=== PATIENT | male | born 1990 | race American Indian/Alaskan Native ===

== ENCOUNTER 2017-11-23 11:10 | Emergency (ER) | payer MEDICAID ==
[2017-11-23 11:37] VITALS: BP 114/76; PULSE 62; RESP 18; TEMP 98.5; O2SAT 95
[2017-11-23] MEDS ORDERED: cefTRIAXone (Rocephin) 250 mg Inj IM STA (11:43)
--- NOTE | 2017-11-23 11:46 | C.PDOC ---
History Of Present Illness 27 year old male presents to the emergency department with complaints of lower abdominal pain and dysuria. Patient reports that he believes to have contracted an STD following unprotected sex due to the fact that he contracted one last year. Patient denies any major medical problems and has a PMHx of asthma as a child. Patient denies fevers, chills, nausea and vomiting, pus, and bleeding. Time Seen by Provider: 11/23/17 11:39 Chief Complaint (Nursing): Male Genitourinary History Per: Patient Current Symptoms Are (Timing): Still Present Quality Of Discomfort: Cramping (in lower abdominal region.) Associated Symptoms: Urinary Symptoms (dysuria) Past Medical History Reviewed: Historical Data, Nursing Documentation, Vital Signs Vital Signs: Last Vital Signs Temp 98.5 F 11/23/17 11:15 Pulse 62 11/23/17 11:15 Resp 18 11/23/17 11:15 BP 114/76 11/23/17 11:15 Pulse Ox 95 11/23/17 13:19 - Medical History PMH: Asthma Surgical History: No Surg Hx - [facility] Procedures INJECT/INFUSE NEC (11/25/04) Family History: States: No Known Family Hx - Social History Hx Tobacco Use: Yes Hx Alcohol Use: Yes Hx Substance Use: No - Immunization History Hx Tetanus Toxoid Vaccination: No Hx Influenza Vaccination: No Hx Pneumococcal Vaccination: No Review Of Systems Except As Marked, All Systems Reviewed And Found Negative. Constitutional: Negative for: Fever Gastrointestinal: Positive for: Abdominal Pain (cramping). Negative for: Nausea , Vomiting Genitourinary: Positive for: Dysuria. Negative for: Penile Discharge (pus or bleeding) Physical Exam - Physical Exam Appears: Non-toxic, No Acute Distress Respiratory: Normal Breath Sounds Gastrointestinal/Abdominal: Normal Exam, Soft, No Tenderness ED Course And Treatment O2 Sat by Pulse Oximetry: 95 (RA) Pulse Ox Interpretation: Normal Medical Decision Making Medical Decision Making: Plan: Rocephin 205mg IM Zithromax 1000mg PO Urinalysis to rule out UTI. Disposition - Disposition Disposition: HOME/ ROUTINE Disposition Time: 12:30 Condition: STABLE Instructions: Urethritis Forms: General Discharge Instructions, [facility] (Iranian) - Clinical Impression Clinical Impression: Urethritis, Sexually transmitted Chlamydia trachomatis infection - Scribe Statement The provider has reviewed the documentation as recorded by the Scribe (Fitz Mars) Provider Attestation: All medical record entries made by the Scribe were at my direction and personally dictated by me. I have reviewed the chart and agree that the record accurately reflects my personal performance of the history, physical exam, medical decision making, and the department course for this patient. I have also personally directed, reviewed, and agree with the discharge instructions and disposition.
[2017-11-23 12:14] LABS: URINE BILIRUBIN NEGATIVE (NEGATIVE); URINE BLOOD NEGATIVE (NEGATIVE); URINE CLARITY Clear (Clear); URINE COLOR Yellow (YELLOW); URINE GLUCOSE (UA) NORMAL (Normal); URINE LEUKOCYTE ESTERASE NEG Leu/uL (Negative); URINE PROTEIN NEGATIVE (NEGATIVE)
== END 2017-11-23 12:55 | disposition home or self-care (01) ==
LOC: C.ER 11:10
DX: A74.9 Chlamydial infection, unspecified (principal); N34.2 Other urethritis; Z72.0 Tobacco use
CPT/HCPCS: 81001; 96372; 99284; J0696

== ENCOUNTER 2018-05-27 16:05 | Emergency (ER) | payer MEDICAID ==
[2018-05-27 16:32] VITALS: BP 118/74; PULSE 65; RESP 18; TEMP 99; O2SAT 100
[2018-05-27] MEDS ORDERED: cefTRIAXone (Rocephin) 250 mg Inj IM STA (16:44)
[2018-05-27 17:28] LABS: URINE BILIRUBIN NEGATIVE (NEGATIVE); URINE BLOOD NEGATIVE (NEGATIVE); URINE CLARITY Clear (Clear); URINE COLOR Yellow (YELLOW); URINE GLUCOSE (UA) NORMAL (Normal); URINE LEUKOCYTE ESTERASE TRACE Leu/uL (Negative); URINE PROTEIN NEGATIVE (NEGATIVE)
--- NOTE | 2018-05-27 17:50 | C.PDOC ---
Time Seen by Provider: 05/27/18 16:40 Chief Complaint (Nursing): ENT Problem Past Medical History Vital Signs: Last Vital Signs Temp 99 F 05/27/18 16:30 Pulse 65 05/27/18 16:30 Resp 18 05/27/18 16:30 BP 118/74 05/27/18 16:30 Pulse Ox 100 05/27/18 16:30 - Medical History PMH: Asthma - [facility] Procedures INJECT/INFUSE NEC (11/25/04) - Social History Hx Tobacco Use: Yes Hx Alcohol Use: Yes Hx Substance Use: No - Immunization History Hx Tetanus Toxoid Vaccination: No Hx Influenza Vaccination: No Hx Pneumococcal Vaccination: No ED Course And Treatment O2 Sat by Pulse Oximetry: 100 Disposition Counseled Patient/Family Regarding: Diagnosis - Disposition Disposition: HOME/ ROUTINE Disposition Time: 17:50 Condition: STABLE Instructions: Urethritis (DC) Forms: [facility] (Malagasy), Emergency Room Disch/Depart - POA Present On Arrival: None - Clinical Impression Clinical Impression: Urethritis
== END 2018-05-27 17:53 | disposition home or self-care (01) ==
LOC: C.ER 16:05
DX: N34.2 Other urethritis (principal)